=== PATIENT | female | born 1975 | race Caucasian/White ===

== ENCOUNTER 2021-11-18 10:45 | Emergency (ER) | payer BC, SELFPAY ==
[2021-11-18 10:55] VITALS: BP 136/90; PULSE 75; RESP 16; TEMP 37.7; O2SAT 99
--- NOTE | 2021-11-18 11:33 | ED.UPPEXIN ---
HPI - Extremity Injury (Upper) General Chief Complaint: Extremity Injury, Upper Stated Complaint: Right Hand/ Elbow/ Numbness/Pain Time Seen by Provider: 11/18/21 11:18 Source: patient and RN notes reviewed Mode of arrival: ambulatory Limitations: no limitations History of Present Illness HPI narrative: Patient presents today complaining of a 1 month history of intermittent numbness to the right forearm and hand with pain to the area that started this morning. States her hand is typically numb when she wakes up in the morning. 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 She currently rates her pain 1/10 at rest, but this increases currently with any movement of the wrist or fingers. She has been taking tramadol that she normally aches for her chronic neck and back pain, without relief of current symptoms. MD complaint: injury to: right, wrist and hand Related Data Home Medications Medication Instructions Recorded Confirmed carvedilol 12.5 mg PO BID 11/18/21 11/18/21 hydroxyzine HCl 25 mg PO BID 11/18/21 11/18/21 ibuprofen 800 mg PO Q8H PRN 11/18/21 11/18/21 tramadol 50 mg PO Q6H PRN 11/18/21 11/18/21 Allergies Allergy/AdvReac Type Severity Reaction Status Date / Time paroxetine [From Paxil] Allergy Mild Unknown Verified 11/18/21 11:10 sertraline [From Zoloft] Allergy Mild Hives Verified 11/18/21 11:10 Review of Systems Review of Systems: CONSTITUTIONAL: Denies body aches, fever, chills, or sweats. EYES: Denies visual changes, redness, or discharge. ENT: Denies rhinorrhea, congestion, sore throat, or otalgia. CARDIOVASCULAR: Denies chest pain, palpitations, or edema. RESPIRATORY: Denies cough or dyspnea. GASTROINTESTINAL: Denies abdominal pain, nausea, vomiting, or diarrhea. GENITOURINARY: Denies dysuria or hematuria. SKIN: Denies rash, itching, or wounds. MUSCULOSKELETAL: Denies back pain. + Right forearm and hand pain NEUROLOGIC: Denies headache, tingling, or weakness.+ Right hand numbness PSYCH: Denies depression or anxiety. [facility] Past Medical History Medical History (Updated 11/18/21 @ 11:39 by Velma Juárez, [facility], ) CHF (congestive heart failure) Chronic back pain Chronic neck pain Scoliosis Comments At time of signature, I have reviewed and agree with nursing past medical, surgical, social and family history unless otherwise noted. Please see nursing chart for further information. There is no relevant family history pertinent to the presenting complaint Exam Narrative: GENERAL: Well-appearing, well-nourished, and in no acute distress. HEAD: Normocephalic, atraumatic. EYES: EOMI. No redness or drainage. Conjunctivae normal. ENT: Mucous membranes pink and moist. NECK: Normal AROM. CHEST: No respiratory distress. EXTREMITIES: Right arm:+tinel's sign, +phalen's test. Patient reports numbness to fingers 1 through 4 as well as the thenar eminence. She does have distal sensation in all 5 fingers. Reports pain in fingers 1 through 3 as well as the wrist. These areas are all tender to palpation. She has pain with any range of motion of the wrist as well as making a fist. Capillary refill normal. Radial pulse normal. No edema, ecchymosis, erythema noted. No tenderness to the rest of the forearm or elbow. SKIN: Warm, dry, no rash. Capillary refill normal. Normal skin turgor. NEURO: No focal deficits. Alert and oriented x3. Gait steady. PSYCH: Normal affect. No signs of depression or anxiety. Course Course Level of Care: Express Care Visit Vital Signs Vital signs: Vital Signs Temperature 99.8 F H 11/18/21 10:55 Pulse Rate 75 11/18/21 10:55 Respiratory Rate 16 11/18/21 10:55 Blood Pressure 136/90 11/18/21 10:55 Pulse Oximetry 99 11/18/21 10:55 Temperature 99.8 F H 11/18/21 10:55 Pulse Rate 75 11/18/21 10:55 Respiratory Rate 16 11/18/21 10:55 Blood Pressure 136/90 11/18/21 10:55 Pulse Oximetry 99 04/0
== END 2021-11-18 11:47 | disposition home or self-care (01) ==
PROVIDERS: Emergency Provider Nurse Practitioner
DX: G56.01 Carpal tunnel syndrome, right upper limb (principal); I50.9 Heart failure, unspecified; M41.9 Scoliosis, unspecified
CPT/HCPCS: 99213; G0463